=== PATIENT | male | born 1990 | race Caucasian/White ===

== ENCOUNTER 2017-01-22 23:12 | Emergency (ER) | payer SELFPAY ==
[~2017-01-22] VITALS: Ht 172.7 cm; Wt 81.6 kg
[2017-01-22 23:15] VITALS: BP 171/101
[2017-01-22] MEDS ORDERED: Haloperidol 5mg/ml Inj IM ONE ×2 (23:15→23:30)
[2017-01-22 23:20] VITALS: BP 152/68
[2017-01-22] MEDS ORDERED: LORazepam Inj 2mg/ml 1ml IM ONE (23:30)
[2017-01-22 23:35] VITALS: BP 121/56
[2017-01-22 23:50] VITALS: BP 132/61
[2017-01-23 00:05] VITALS: BP 103/61
[2017-01-23 00:06] LABS: MEAN CORPUSCULAR HEMOGLOBIN 31.7 PG (27.0-31.0); MEAN CORPUSCULAR HGB CONC 34.7 G/DL (32.0-36.0); MEAN CORPUSCULAR VOLUME 92 FL (80-99); MEAN PLATELET VOLUME 6.2 FL (6.5-10.1); PLATELET COUNT 293 K/UL (150-450); RED BLOOD COUNT 4.47 M/UL (4.70-6.10); WHITE BLOOD COUNT 13.2 K/UL (4.8-10.8)
[2017-01-23 00:07] LABS: APPEARANCE,URINE CLEAR; KETONES,URINE 3+ (NEGATIVE); LEUKOCYTE ESTERASE ,URINE NEGATIVE (NEGATIVE); NITRITE,URINE NEGATIVE (NEGATIVE); PH,URINE 6 (4.5-8.0); PROTEIN,URINE 2+ (NEGATIVE); UROBILINOGEN,URINE NORMAL MG/DL (0.0-1.0)
[2017-01-23 00:16] LABS: ACETAMINOPHEN < 10 ug/mL (10-30); ALANINE AMINOTRANSFERASE 58 U/L (3-41); ALBUMIN/GLOBULIN RATIO 1.5 (1.0-2.7); ALCOHOL < 10 mg/dL; ANION GAP 22 (5-15); ASPARTATE AMINO TRANSFERASE 100 U/L (5-40); CALCIUM 9.6 mg/dL (8.6-10.2); CARBON DIOXIDE 21 mEQ/L (20-30); CHLORIDE 95 mEQ/L (98-107); GLOMERULAR FILTRATION RATE > 60 mL/min (>60); HEMOLYSIS 3; POTASSIUM 3.7 mEQ/L (3.4-4.9); SODIUM 138 mEQ/L (135-145); TOTAL PROTEIN 7.6 g/dL (6.6-8.7)
[2017-01-23 00:20] VITALS: BP 114/67
[2017-01-23 00:26] LABS: BACTERIA,URINE FEW /HPF; SQUAMOUS EPITHELIAL CELL,UR FEW /LPF (NONE/OCC)
[2017-01-23 02:12] VITALS: BP 129/73
[2017-01-23 04:19] VITALS: BP 119/76
[2017-01-23 05:01] VITALS: BP 119/76
--- NOTE | 2017-01-23 05:15 | Emergency Room Report ---
History of Present Illness General Chief Complaint: Behavioral Complaint Source: Patient, EMS Present Illness HPI Is a 26-year-old male with unknown psychiatric history of medical problem. Was brought in by EMS and police because he was putting on top of cars. Patient is very agitated had to be restrained. Patient did tell me that he used meth 2 days ago. History is limited because of his agitation. Allergies: Coded Allergies: UNABLE TO ASSESS (Unverified , 01/22/17) Patient History Past Medical History: see triage record, old chart reviewed, unable to obtain Past Surgical History: unable to obtain Family History: unable to obtain Social History: drug use Immunizations: other Reviewed Nursing Documentation: PMH: Agreed, PSxH: Agreed Nursing Documentation-PMH Past Medical History Deferred: Pt Cognitively Impaired Review of Systems All Other Systems: limited - Secondary to condition. Not cooperative. Physical Exam Vital Signs Date Time Temp Pulse Resp B/P Pulse Ox O2 Delivery O2 Flow Rate FiO2 01/22/17 23:01 94 18 171/101 97 Room Air 01/22/17 23:15 98.1 vitals unremarkable except for hypertension Sp02 EP Interpretation: reviewed, normal General Appearance: alert/responsive, no apparent distress, non-toxic, other - Agitated and yelling. Head: normocephalic, atraumatic Eyes: PERRL, EOMI ENT: oropharynx normal Neck: supple/symm/no masses Respiratory: effort normal, no rhonchi, no wheezing Cardiovascular: no murmur, gallop, rub Gastrointestinal: non-tender, no mass, non-distended, no rebound/guarding, normal bowel sounds Musculoskeletal: gait & station normal Neurologic: oriented x3, sensory intact, motor strength/tone normal Skin: no rash, normal palpation Medical Decision Making Diagnostic Impression: Primary Impression: Acute psychosis ER Course Patient presents with acute psychosis and had to be physically restrained. After sedation, he was calm and restraints were removed quickly. He is now calm. Did admit to using drugs before. No suicidal thought homicidal thought now. Said that he normally doesn't take any psychiatric medication. Has taken in the past. Does not want to stay. At this point I see no criteria for 5150. We'll discharge home. Last Vital Signs Date Time Temp Pulse Resp B/P Pulse Ox O2 Delivery O2 Flow Rate FiO2 01/23/17 02:12 98.1 80 21 129/73 96 Room Air Status: improved Disposition: HOME, SELF-CARE Condition: Stable Referrals: NOT CHOSEN IPA/MD,REFERRING (PCP) Patient Instructions: Self-Destructive Behavior Additional Instructions: Abstain from drugs and alcohol. Followup your Dr. in 2-3 days. Go to mental health. Return if worse. JOSE DELAROSA M.D. January 23, 2017 05:15
== END 2017-01-23 05:01 | disposition home or self-care (01) ==
LOC: EDBD 23:12 → EMR 23:39
DX: F23 Brief psychotic disorder (principal); F19.90 Other psychoactive substance use, unspecified, uncomplicated; R45.1 Restlessness and agitation
CPT/HCPCS: 36415; 80053; 80300; 81003; 85025; 96372; 99283; G0480; J1630; 80329